=== PATIENT | female | born 1975 | race Caucasian/White ===

== ENCOUNTER → 2017-05-11 | Outpatient (CLI) | payer OTHER ==
[~2017-05-11] VITALS: Ht 167.6 cm; Wt 85.3 kg
[~2017-05-11] MED LIST: LEXAPRO10 MG PO; MOBIC15 MG PO; PERCOCET 5/31 TABLET PO
[2017-05-11 14:51] LABS: HEMATOCRIT 45.8 % (36.0-46.0); MCH 29.7 PG (29.0-34.0); MCHC 33.8 G/DL (30.0-36.0); MCV 87.7 FL (83-99); MEAN PLAT.VOLUME 9.2 uM^3 (9.5-12.4); PLATELET COUNT 257 K/uL (156-360); RBC DIS.WIDTH-CV 11.9 % (11.8-14.6); RBC DIS.WIDTH-SD 38.1 % (39-53); RED BLOOD COUNT 5.22 M/uL (3.80-5.20)
[2017-05-11 15:06] LABS: PROTHROMBIN TIME 11.2 SEC (10.2-12.9)
[2017-05-11 15:09] LABS: PTT 29.3 SEC (25-37)
== END | disposition home or self-care (01) ==
LOC: AMB 14:05
PROVIDERS: Internal Medicine Pulmonary Disease
PROC: 0B928ZX Drainage of Carina, Via Natural or Artificial Opening Endoscopic, Diagnostic (ICD-10-PCS; principal; 2017-05-11)
DX: R59.0 Localized enlarged lymph nodes (principal); R06.02 Shortness of breath; Z87.891 Personal history of nicotine dependence; F41.9 Anxiety disorder, unspecified; R53.83 Other fatigue
CPT/HCPCS: 85027; 85610; 85730; 88173; J0461; J2175; J2250; J2550; J3010

== ENCOUNTER 2017-06-18 06:35 | Day surgery (SDC) | payer OTHER ==
[~2017-06-18] VITALS: Ht 167.6 cm; Wt 85.0 kg
[~2017-06-18 06:35] MED LIST changes: +SYMBICORT60 INHALAT IH
[2017-06-18 07:26] VITALS: BP 123/74
[2017-06-18] MEDS ORDERED: COLACE100 MG PO ×2 (10:08→10:10)
[2017-06-18] MEDS ORDERED: NORCO 5/3251 TABLET PO (10:08)
[2017-06-18] MEDS ORDERED: HYDROCODON-ACE1 EAC7 PO (10:10)
[2017-06-18 10:50] VITALS: BP 130/63
[2017-06-18 11:34] VITALS: BP 119/65
== END 2017-06-18 11:35 | disposition home or self-care (01) ==
LOC: SDC 06:35
PROC: 07B74ZX Excision of Thorax Lymphatic, Percutaneous Endoscopic Approach, Diagnostic (ICD-10-PCS; principal; 2017-06-18)
DX: R59.0 Localized enlarged lymph nodes (principal); Z87.891 Personal history of nicotine dependence; J45.909 Unspecified asthma, uncomplicated; F41.9 Anxiety disorder, unspecified
CPT/HCPCS: 86850; 86900; 86901; 88305; 88312; J0690; J1100; J1885; J2250; J2405; J2710; J3010